=== PATIENT | female | born 1995 | race Two or more races ===

== ENCOUNTER 2016-12-30 18:03 | Emergency (ER) | payer MEDICAID ==
[2016-12-30] MEDS ORDERED: Ondansetron 4 MG/2 ML SDV IVPUSH ONE (19:05)
[2016-12-30] MEDS ORDERED: Ketorolac 30 MG/ML SDV IVPUSH ONE (19:05)
[2016-12-30] MEDS ORDERED: Iopamidol 755 Mg/ML 100 ML Bottle IV ONE (19:08)
[2016-12-30 22:47] VITALS: BP 108/59
--- NOTE | 2016-12-30 23:11 | ER ---
DATE SEEN: 12/30/2016 CHIEF COMPLAINT: Abdominal pain. HISTORY OF PRESENT ILLNESS: This is a 21-year-old female, currently on Macrobid for urinary tract infection. Her symptoms mostly have been located in the right upper quadrant. This has been going on since this Sunday. Moderate pain, also associated with nausea. REVIEW OF SYSTEMS: No constipation. No fever or chills. No urinary symptoms tonight. Denies . ALLERGIES: Reviewed. PHYSICAL EXAMINATION: VITAL SIGNS: Afebrile. Blood pressure is normal. Temp 97.8. ABDOMEN: Soft with tenderness right upper quadrant, but no rebound or masses. Bowel sounds are present. CHEST: Clear. LABORATORY DATA: White cell count is 12.4. Electrolytes are normal. UA is negative. Urine negative. CT of the abdomen and pelvis negative. IMPRESSION: Abdominal pain. PLAN: Ketorolac and Zofran. Symptoms improved. Discharged home to follow up with GI on Sunday. Return to the ED with any worsening symptoms. /[id number] ANAHY/SRINIVASA
== END 2016-12-30 20:55 | disposition home or self-care (01) ==
LOC: FB.ED 18:03
DX: R10.11 Right upper quadrant pain (principal)
CPT/HCPCS: 36415; 74177; 80053; 81001; 81025; 82150; 85025; 96374; 96375; 99284; J1885; J2405; Q9967

== ENCOUNTER 2020-04-01 08:48 | Day surgery (SDC) | payer MEDICAID ==
[~2020-04-01 08:48] MED LIST: Lactated Ringers 1,000 ML IV SCH; Sodium Chloride 0.9% 10 ML Syringe FLUSH PRN
[2020-04-01] MEDS ORDERED: fentaNYL 100 MCG/2 ML SDV IV ONE (08:49)
[2020-04-01] MEDS ORDERED: Glycopyrrolate 0.2 MG/ML 5 ML MDV IV ONE (08:49)
[2020-04-01] MEDS ORDERED: Propofol 200 MG/20 ML SDV IV ONE (08:49)
[2020-04-01] MEDS ORDERED: Acetaminophen 1,000 MG/100 ML Infusion Bottle Premix IV ONE (08:49)
[2020-04-01] MEDS ORDERED: Ondansetron 4 MG/2 ML SDV IVPUSH ONE ×2 (08:49)
[2020-04-01] MEDS ORDERED: Dexamethasone 4 MG/ML 5 ML MDV IVPUSH ONE (08:49)
[2020-04-01] MEDS ORDERED: Ketorolac 30 MG/ML SDV IVPUSH ONE (08:49)
[2020-04-01] MEDS ORDERED: Neostigmine Methylsulfate 10 MG/10 ML MDV IVPUSH ONE (08:49)
[2020-04-01] MEDS ORDERED: Metoclopramide 10 MG/2 ML SDV IVPUSH ONE (08:49)
[2020-04-01] MEDS ORDERED: Midazolam 1 MG/ML 2 ML SDV IV ONE (08:49)
[2020-04-01] MEDS ORDERED: Lactated Ringers 1,000 ML IV ONE (08:49)
[2020-04-01] MEDS ORDERED: Rocuronium 50 MG/5 ML Vial IV ONE (08:49)
[2020-04-01] MEDS ORDERED: Succinylcholine 200 MG/10 ML MDV IV ONE (08:49)
[2020-04-01] MEDS ORDERED: Lidocaine 2% 100 MG/5 ML Syringe IVPUSH ONE (08:49)
[2020-04-01] MEDS ORDERED: Lidocaine 1% with EPINEPHrine 1:100,000 20 ML MDV INJECT ONE (10:11)
[2020-04-01] MEDS ORDERED: Bupivacaine 0.5% 30 ML SDV INJECT ONE (10:11)
[2020-04-01] MEDS ORDERED: cefOXitin 2 GM Vial IVPUSH ONE (10:15)
[2020-04-01] MEDS ORDERED: cefOXitin 2 GM in Sodium Chloride 0.9% 100 ML IV ONE (10:15)
[2020-04-01] MEDS ORDERED: Acetaminophen/HYDROcodone 325-5 MG Tab PO PRN (10:50)
--- NOTE | 2020-04-01 10:50 | PCM.OPNOTE ---
- General Post-Op/Procedure Note Date of Surgery/Procedure: 04/01/20 Operative Procedure(s): lap cholecystectomy Findings: single gallstone adherent to the gallbladder wall. Pre Op Diagnosis: ruq abd pain, gallbladder polyp Post-Op Diagnosis: cholelithiasis no obstruction,or cholecystitis, Anesthesia Technique: General ET Tube, Local (11 ml 1 % lidocaine with epi/0.5% buvipicaine) Primary Surgeon: Roman Bland Anesthesia Provider: Zelalem Martínez Pathology: gallbladder and contents. Complications: None Condition: Good Free Text/Narrative:: see dictation
--- NOTE | 2020-04-01 11:44 | OR ---
DATE OF OPERATION: 04/01/2020 SURGEON: Roman Bland MD PROCEDURE PERFORMED: Laparoscopic cholecystectomy. PREOPERATIVE DIAGNOSIS: Gallbladder polyp with biliary colic. POSTOPERATIVE DIAGNOSIS: Cholelithiasis without obstruction or cholecystitis. INDICATIONS FOR PROCEDURE: This is a 24-year-old female who was having some intermittent right upper quadrant abdominal pain for the past 3 weeks. Subsequent workup revealed a normal lab work; however, an ultrasound demonstrated what appears to be a polyp that is ball-valving in and out of the neck of the gallbladder, and this appears to be the cause of her pain. She was offered and accepted a laparoscopic cholecystectomy. INTRAOPERATIVE FINDINGS: 1. Critical view was obtained. 2. On opening the gallbladder, the polyp actually appeared as an adherent stone that was stuck to the sidewall of the gallbladder and ball-valving as the mucosa moved. DESCRIPTION OF OPERATION: After an excellent general anesthetic was administered, the patient was prepped and draped in the usual sterile manner. Local was used to infiltrate the site at the periumbilical area just below the umbilicus. This was a 1:1 mixture of 1% lidocaine with epinephrine and 0.5% bupivacaine. A grand total of 11 mL was used for the entire case. A small vertical midline incision was carried out. Blunt dissection was carried out, exposing the midline fascia. Two stay sutures of 0 Vicryl were placed on either side of the midline fascia. This was then elevated, incised, and the abdominal cavity was entered. After digital palpation to ensure no adhesions, a 10.5 mm Hong trocar was inserted into the patient's abdomen which was then insufflated to 15 mmHg using carbon dioxide. Under direct visualization, three 5 mm ports were placed; one in the midline epigastrium, and two below the right costal margin at the proximal level of the midclavicular and anterior axillary line. This was done by infiltrating with local, making a stab incision with a #15 scalpel blade, and then inserting the trocars into the patient's abdominal cavity. The gallbladder was grasped and retracted. The infundibulum was grasped. Careful blunt dissection was carried out, exposing the cystic duct and the cystic artery. There was a small mm side branch that appeared to come off the right hepatic as well that had some slight oozing, and after assuring that we had a critical view, a side hemoclip was placed on this to control bleeding. Two clips were placed proximally on the cystic artery and one distally. Two clips were placed proximally on the cystic duct and one distally, and the structures were transected. L-hook cautery dissection was carried out, dissecting the gallbladder free from the gallbladder fossa. This was then passed into a specimen bag and delivered out through the periumbilical port. The gallbladder fossa was then irrigated, and after assuring excellent hemostasis, we irrigated along the right lobe of the liver until clear after flattening out the patient. The trocars were removed under direct visualization. The fascia of the periumbilical port was closed with a figure-of- eight 0 Vicryl, and the 2 stay sutures were sutured to each other. The skin was closed with interrupted 4-0 Vicryl for the 5 mm ports and then a running subcu 4- 0 Vicryl for the periumbilical incision. Steri-Strips and Band-Aids were applied. The patient was taken to the recovery room in good condition having tolerated the procedure well. Needle, sponge, and instrument counts were reported as correct. On opening the gallbladder, we did note that there was no polyp and that the perceived defect was actually a gallstone that had been adherent to the gallbladder wall. A photo was taken for further documentation. /[id number] /BERNICEL
[2020-04-01 12:46] VITALS: BP 105/60; PULSE 81
== END 2020-04-01 12:41 | disposition home or self-care (01) ==
LOC: FB.SDS 08:48
PROVIDERS: ATTEND Surgery
DX: K80.10 Calculus of gallbladder with chronic cholecystitis without obstruction (principal); Z79.899 Other long term (current) drug therapy; Z88.8 Allergy status to other drugs, medicaments and biological substances; Z88.1 Allergy status to other antibiotic agents; Z98.890 Other specified postprocedural states
CPT/HCPCS: 00790; 47562; 81025; A9270; J0131; J0330; J0694; J1100; J1885; J2001; J2250; J2405; J2704; J2710; J2765; J3010; J3490; J7120

== ENCOUNTER 2023-11-30 21:57 | Emergency (ER) | payer MEDICAID ==
[2023-11-30 22:29] VITALS: BP 123/68; PULSE 117
[2023-11-30] MEDS: Sodium Phosphate,Monobasic/Sodium Phosphate,Dibasic Enema 133 ML Bottle RECTAL ONE (23:04)
== END 2023-11-30 23:44 | disposition home or self-care (01) ==
LOC: FB.ED 21:57
DX: O99.612 Diseases of the digestive system complicating pregnancy, second trimester (principal); K59.00 Constipation, unspecified; Z3A.17 17 weeks gestation of pregnancy; Z88.2 Allergy status to sulfonamides; Z79.84 Long term (current) use of oral hypoglycemic drugs; Z79.899 Other long term (current) drug therapy
CPT/HCPCS: 99283